=== PATIENT | male | born 1970 | race Caucasian/White ===

== ENCOUNTER → 2024-12-31 | Outpatient (CLI) | payer BC, SELFPAY ==
[2024-12-31 16:28] LABS: Basophils # (Auto) 0.1 Thou/mm3 (0.0-0.2); Basophils % (Auto) 1 % (0-2.5); Eosinophils # (Auto) 0.2 Thou/mm3 (0.0-0.5); Eosinophils % (Auto) 2 % (0-10); Hematocrit 42.3 % (41.0-53.0); Hemoglobin 14.7 g/dL (13.5-16.0); Immature Granulocytes % (Auto) 0 % (0-0); Immature Granulocytes Auto 0.01 Thou/mm3 (0.00-0.00); Lymphocytes % (Auto) 41 % (10-50); Mean Corpuscular HGB Conc 34.8 g/dl (31.0-37.0); Mean Corpuscular Hemoglobin 29.5 pg (25.0-35.0); Mean Corpuscular Volume 85 fL (80-100); Monocytes # (Auto) 0.7 Thou/mm3 (0.0-0.8); Monocytes % (Auto) 10 % (0-12); Neutrophils # (Auto) 3.3 Thou/mm3 (1.8-7.7); Neutrophils % (Auto) 46 % (37-80); Nucleated Red Blood Cell % 0 /100 WBC (0); Platelet Count 229 Thou/mm3 (140-440); RDW Standard Deviation 38.1 fL (35.1-43.9); Red Blood Count 4.98 Miln/mm3 (4.50-5.90); White Blood Count 7.2 Thou/mm3 (3.8-10.6)
[2024-12-31 16:42] LABS: Alanine Aminotransferase 35 U/L (10-49); Albumin, Serum 4.1 gm/dL (3.5-5.0); Albumin/Globulin Ratio 2.3 (1.2-2.2); Alkaline Phosphatase 70 U/L (46-116); Anion Gap 9 (7-16); Aspartate Amino Transferase 26 U/L (0-34); BUN/Creatinine Ratio 12 Ratio (12-20); Bilirubin,Total 1.7 mg/dL (0.3-1.2); Blood Urea Nitrogen 14 mg/dL (9-23); Calcium 9.3 mg/dL (8.3-10.6); Calcium (Corrected) 9.3 mg/dL (8.5-10.1); Carbon Dioxide 27.9 mMol/L (20.0-31.0); Chloride 106 mMol/L (98-107); Creatinine (Component) 1.2 mg/dL (0.6-1.3); Globulin 1.8 gm/dL (2.3-3.5); Glucose 87 mg/dL (74-106); Osmolality,Calculated 284 (275-295); Potassium 4.5 mMol/L (3.4-5.1); Sodium 143 mMol/L (136-145); Total Protein 5.9 gm/dL (5.7-8.2); eGFR > 60 See Note
== END | disposition home or self-care (01) ==
LOC: COPL 15:35
PROVIDERS: PCP Family Medicine; Referring Provider Orthopaedic Surgery; Visit Provider Orthopaedic Surgery
DX: Z97.10 Presence of artificial limb (complete) (partial), unspecified (principal)
CPT/HCPCS: 36415; 80053; 85025

== ENCOUNTER → 2025-01-27 | Outpatient (CLI) | payer BC, SELFPAY ==
[2025-01-27 13:07] LABS: Basophils # (Auto) 0.1 Thou/mm3 (0.0-0.2); Basophils % (Auto) 1 % (0-2.5); Eosinophils # (Auto) 0.1 Thou/mm3 (0.0-0.5); Eosinophils % (Auto) 2 % (0-10); Hematocrit 43.6 % (41.0-53.0); Hemoglobin 15.1 g/dL (13.5-16.0); Immature Granulocytes % (Auto) 0 % (0-0); Immature Granulocytes Auto 0.01 Thou/mm3 (0.00-0.00); Lymphocytes # (Auto) 2.5 Thou/mm3 (1.0-4.8); Lymphocytes % (Auto) 37 % (10-50); Mean Corpuscular HGB Conc 34.6 g/dl (31.0-37.0); Mean Corpuscular Hemoglobin 29.9 pg (25.0-35.0); Mean Corpuscular Volume 86 fL (80-100); Monocytes # (Auto) 0.6 Thou/mm3 (0.0-0.8); Monocytes % (Auto) 9 % (0-12); Neutrophils # (Auto) 3.5 Thou/mm3 (1.8-7.7); Neutrophils % (Auto) 51 % (37-80); Nucleated Red Blood Cell % 0 /100 WBC (0); Platelet Count 205 Thou/mm3 (140-440); RDW Standard Deviation 38.9 fL (35.1-43.9); Red Blood Count 5.05 Miln/mm3 (4.50-5.90); White Blood Count 6.8 Thou/mm3 (3.8-10.6)
[2025-01-27 13:23] LABS: Alanine Aminotransferase 30 U/L (10-49); Albumin, Serum 4.1 gm/dL (3.5-5.0); Albumin/Globulin Ratio 2.3 (1.2-2.2); Alkaline Phosphatase 69 U/L (46-116); Anion Gap 3 (7-16); Aspartate Amino Transferase 20 U/L (0-34); BUN/Creatinine Ratio 13 Ratio (12-20); Bilirubin,Total 2.5 mg/dL (0.3-1.2); Blood Urea Nitrogen 14 mg/dL (9-23); Calcium 8.9 mg/dL (8.3-10.6); Calcium (Corrected) 8.9 mg/dL (8.5-10.1); Carbon Dioxide 30.7 mMol/L (20.0-31.0); Cardiac Risk Estimate 4.4 RATIO (4.0-6.7); Chloride 110 mMol/L (98-107); Cholesterol 159 mg/dL (132-200); Creatinine (Component) 1.1 mg/dL (0.6-1.3); Globulin 1.8 gm/dL (2.3-3.5); Glucose 90 mg/dL (74-106); HDL Cholesterol 36 mg/dL (40-60); LDL Cholesterol,Calculated 101 mg/dL (0-130); Osmolality,Calculated 287 (275-295); Potassium 4.5 mMol/L (3.4-5.1); Sodium 144 mMol/L (136-145); Thyroid Stimulating Hormone 0.98 uIU/mL (0.55-4.78); Total Protein 5.9 gm/dL (5.7-8.2); Triglycerides 112 mg/dL (30-150); eGFR > 60 See Note
== END | disposition home or self-care (01) ==
LOC: COPL 12:33
PROVIDERS: PCP Family Medicine; Referring Provider Family Medicine; Visit Provider Family Medicine
DX: E78.5 Hyperlipidemia, unspecified (principal)
CPT/HCPCS: 36415; 80053; 80061; 84443; 85025

== ENCOUNTER → 2025-06-25 | Outpatient (CLI) | payer BC, SELFPAY ==
[2025-06-25 15:13] LABS: Alanine Aminotransferase 27 U/L (10-49); Albumin, Serum 4.5 gm/dL (3.5-5.0); Albumin/Globulin Ratio 2.8 (1.2-2.2); Alkaline Phosphatase 77 U/L (46-116); Anion Gap 8 (7-16); Aspartate Amino Transferase 21 U/L (0-34); BUN/Creatinine Ratio 12 Ratio (12-20); Bilirubin,Total 2.0 mg/dL (0.3-1.2); Blood Urea Nitrogen 12 mg/dL (9-23); Calcium 10.0 mg/dL (8.3-10.6); Calcium (Corrected) 10.0 mg/dL (8.5-10.1); Carbon Dioxide 30.0 mMol/L (20.0-31.0); Cardiac Risk Estimate 4.4 RATIO (4.0-6.7); Chloride 105 mMol/L (98-107); Cholesterol 164 mg/dL (132-200); Creatinine (Component) 1.0 mg/dL (0.6-1.3); Globulin 1.6 gm/dL (2.3-3.5); Glucose 86 mg/dL (74-106); HDL Cholesterol 37 mg/dL (40-60); LDL Cholesterol,Calculated 109 mg/dL (0-130); Osmolality,Calculated 283 (275-295); Potassium 4.9 mMol/L (3.4-5.1); Sodium 143 mMol/L (136-145); Total Protein 6.1 gm/dL (5.7-8.2); Triglycerides 89 mg/dL (30-150); eGFR > 60 See Note
== END | disposition home or self-care (01) ==
LOC: COPL 13:08
PROVIDERS: PCP Family Medicine; Referring Provider Family Medicine; Visit Provider Family Medicine
DX: I10 Essential (primary) hypertension (principal); E78.2 Mixed hyperlipidemia
CPT/HCPCS: 36415; 80053; 80061

== ENCOUNTER 2025-07-17 19:52 | Emergency (ER) | payer BC, SELFPAY ==
[2025-07-17 19:55] VITALS: BMI 34.8
--- NOTE | 2025-07-17 20:17 | PD.EDFALL ---
ED Fall Injury RME/HPI General Chief Complaint: Fall Stated Complaint: BUCKED OFF THE HORSE Time Seen by Provider: 07/17/25 20:22 Arrival date/time: 07/17/25 19:52 RME / HPI RME / HPI Narrative: See MDM for Dr. Reynolds's HPI documentation. Related Data Home Medications ?Medication ?Instructions ?Recorded ?Confirmed atorvastatin 10 mg tablet (Lipitor) 10 mg PO QHSPRN #0 tabs 08/18/13 09/18/22 erenumab-aooe 140 mg/mL 140 mg subcut QMONTH 08/09/19 09/18/22 subcutaneous auto-injector (Aimovig Autoinjector) propranolol 20 mg tablet 40 mg PO BID 08/09/19 09/18/22 sumatriptan succinate 100 mg 100 mg PO Q2H PRN Headache 08/09/19 09/18/22 tablet (Imitrex) celecoxib 200 mg capsule 200 mg PO HS 09/18/22 09/18/22 cyclobenzaprine 5 mg tablet 5 mg PO HS 09/18/22 09/18/22 escitalopram oxalate 10 mg tablet 10 mg PO QDAY 09/18/22 09/18/22 pantoprazole 40 mg tablet,delayed 40 mg PO QDAY 09/18/22 09/18/22 release rimegepant 75 mg disintegrating 75 mg PO QDAY 09/18/22 09/18/22 tablet (Nurtec ODT) Previous Rx's ?Medication ?Instructions ?Recorded sodium chloride 0.65 % nasal spray 2 spray intranasal QID #88 mL 03/03/23 aerosol (Saline Nasal) acetaminophen 300 mg-codeine 30 mg 2 tab PO Q8H PRN pain #20 tabs 07/17/25 tablet ibuprofen 800 mg tablet 800 mg PO Q8H PRN pain #30 tabs 07/17/25 lidocaine 5 % topical patch 2 patch topical QDAY PRN pain #30 07/17/25 (Lidoderm) ea Allergies Allergy/AdvReac Type Severity Reaction Status Date / Time No Known Allergies Allergy Verified 09/18/22 12:24 Review of Systems Review of Systems Systems Reviewed: All systems reviewed, normal except as documented Past Medical History Past Medical History NEUROLOGIC: Positive Migraine (takes meds); Negative Neurological Disorders or Seizures CARDIAC: Positive Heart Murmur and Hypercholesterolemia; Negative Cardiac Disorders or Congestive Heart Failure RESPIRATORY: Negative Chronic Obstructive Pulmonary Disease (COPD) GASTROINTESTINAL: Positive Gastrointestinal Disorders and Gastroesophageal Reflux Disease (takes meds) GENITOURINARY: Negative Genitourinary Disorders or Renal Disease MUSCULOSKELETAL: Positive Musculoskeletal Disorders ENDOCRINE: Negative Endocrine Disorders, Diabetes Mellitus Type 1 or Diabetes Mellitus Type 2 HEMATOLOGIC: Negative Blood Disorders PSYCHO/SOCIAL: Positive Anxiety OTHER HISTORY: Positive Falls (2009) and Chicken Pox ( CHILD); Negative Autoimmune Disease, Blood Transfusions, Blood Transfusion Reaction or Anesthesia Reactions Family History FAMILY HISTORY: Positive Family Cardiac Disorders (brother-htn); Negative Family Cancer, Family Surgery or Family Anesthesia Reaction Surgical History SURGICAL: Positive Ear Surgery (EAR DRUMS REBUILT PER PT, EAR TUBES CHILD), Tympanostomy Tube and Joint Replacement; Negative Cardiac Surgery or Abdominal Surgery Social History SMOKING STATUS: Never smoker ED Exam Narrative Physical exam: See [facility] for Dr. Reynolds's physical exam documentation. Course Quality Measures none Orders Category Date Time Status CT cervical spine wo con Stat Exams 07/17/25 20:[address] chest abdomen pelvis wo Stat Exams 07/17/25 20:[address] head/brain wo con Stat Exams 07/17/25 20:[address] lumbar spine wo con Stat Exams 07/17/25 20:[address] thoracic spine wo con Stat Exams 07/17/25 20:24 Completed ACETAMINOPHEN w/COD 300-30 [Tylenol w/Cod #3] Med 07/17/25 20:23 Discontinued 2 tab PO X1 ONE Ibuprofen Tab [Motrin Tab] Med 07/17/25 20:23 Discontinued 800 mg PO X1 ONE Vital Signs Vital signs: Vital Signs Temperature 98.2 F 07/17/25 20:36 Pulse Rate 59 L 07/17/25 20:36 Respiratory Rate 17 07/17/25 20:36 Blood Pressure 190/95 H 07/17/25 20:36 Pulse Oximetry (%) 99 07/17/25 20:36 Oxygen Delivery Method Room Air 07/17/25 20:36 Fall [facility] Narrative [facility] Narrative:: This section includes all my notes and documentations, including HPI, PE, and ED course. Gallo Reynolds MD HPI: 54yo male here after falling off a horse about 5 days ago, on 07/13/2025. He landed on his back and on the back of his head. He reports pain in the middle of the back. No headache or dizziness. No neck pain. No chest pain or abdominal pain. No pain in the arms or legs. ROS: All negative except as documented in HPI. Physical Exam: General: Alert and oriented. No acute distress when remaining still. Eyes: Conjunctivae and lids clear. ENT: No signs of head trauma. Neck: No tenderness. Heart: RRR. Lungs: No respiratory distress. Good air movement. No rhonchi, wheezing, rales. Chest: No tenderness. Abdomen: Soft and nontender. Normal bowel sounds. No distension. No rebound or guarding. Back: Right-sided back pain, difficult to localize. Skin: Warm and dry. Neuro: Alert and oriented X 3. Musculoskeletal: All major joints and bones are not tender with no limited ROM. I reviewed all diagnostic test results. My review of the CT head report is NAD. My review of the CT cervical spine report is NAD. My review of the CT chest abdomen pelvis report is acute fractures of right first and second lumbar transverse processes. At this point, diagnoses include: Lumbar vertebral fracture of transverse processes. Treatment here included: Tylenol with Codeine Ibuprofen Significant improvement noted. Recommended outpatient care. Based on my best medical judgment, made decision no further evaluation or treatment indicated at this time. Patient understands and agrees to the discharge instructions customized and printed, see below. Discharge Instructions from Dr. Reynolds printed for you: 1. After evaluation, you sustained broken pedicles (projections) of first and second lumbar vertebrae. 2. Activity as tolerated. 3. Ibuprofen and lidocaine patches and Tylenol with codeine for pain. 4. Expect a couple of months for full recovery. 5. See a private doctor on 07/20/2025 for recheck and further care. Ask to review all official radiology reports, to make sure you receive all necessary follow-ups and monitoring. Ask for help until you are completely better. 6. Seek immediate medical care with worsening or with any concerns. Gallo Reynolds MD Patient data External records reviewed:: [facility] previous records (Per chart review, patient was seen here on 08/09/24 for a skin infection.) Clinical information provided by:: patient Social determinants that could affect healthcare access:: none Patient has the following chronic illnesses:: HLD How is presenting disease/condition affected by chronic disease/condition?: uneffected by Evaluation data The following diagnostics were reviewed and interpreted by me:: radiology exam(s) Lab and/or radiology exams considered but not ordered:: none Interpretation Summary: I reviewed all diagnostic test results. My review of the CT head report is NAD. My review of the CT cervical spine report is NAD. My review of the CT chest abdomen pelvis report is acute fractures of right first and second lumbar transverse processes. Medications / Prescriptions Medications or Prescriptions considered but not ordered:: none Medication administrations:: Medication Administration History Discontinued Medications Acetaminophen/Codeine Phosphate (Acetaminophen W/Cod 300-30 Tablet) 2 tab PO X1 ONE Stop: 07/17/25 20:24 Last Admin: 07/17/25 21:21 Dose: 2 tab Documented By: PATRICIA Ibuprofen (Ibuprofen Tab 400 Mg Tablet) 800 mg PO X1 ONE Stop: 07/17/25 20:24 Last Admin: 07/17/25 21:20 Dose: 800 mg Documented By: PATRICIA Tylenol with Codeine Ibuprofen Consultations Consultation(s) initiated? (list below): No Diagnosis Fall Differential Diagnosis: syncope, compression fracture, concussion with loss of consciousness and concussion without loss of consciousness Most likely diagnosis given after review of the tests above:: Lumbar vertebral fracture of transverse processes Admission Indicated Admission indicated?: not indicated Explain why admission is indicated or not indicated:: With significant improvement and no condition needing emergent intervention, there was no indication for admission. Admission Request Was there a request for admission?: No Disposition Plan Disposition Plan: Discharge Discharge Attestation Discharge Attestation: The patient and all family members were given an opportunity to ask questions and understood the discharge instructions. Discharge instructions specifically effects, indications for sooner follow up or return to the emergency department, and the expected course of current diagnosis. Patient condition: Stable Discharge Plan Plan Patient Disposition: HOME (Self Care) Prescriptions/Referrals Prescriptions/Med Rec: New ibuprofen 800 mg tablet 800 mg PO Q8H PRN (Reason: pain) Qty: 30 0RF acetaminophen-codeine 300-30 mg tablet 2 tab PO Q8H MDD 6 PRN (Reason: pain) Qty: 20 0RF lidocaine [Lidoderm] 5 % adhesive patch,medicated 2 patch topical QDAY PRN (Reason: pain) Qty: 30 0RF Rx Instructions: leave on most painful area for up to 12 hrs No Action atorvastatin [Lipitor] 10 MG tablet 10 mg PO QHSPRN Qty: 0 sumatriptan succinate [Imitrex] 100 mg Tablet 100 mg PO Q2H PRN (Reason: Headache) propranolol 20 mg Tablet 40 mg PO BID Aimovig Autoinjector 140 mg/mL Auto-Injector 140 mg SUBCUT QMONTH celecoxib 200 mg capsule 200 mg PO HS Patient Comments: TAKE 1 CAPSULE BY MOUTH EVERY DAY pantoprazole 40 mg tablet,delayed release (DR/EC) 40 mg PO QDAY Patient Comments: TAKE 1 TABLET BY MOUTH DAILY AT BEDTIME escitalopram oxalate 10 mg tablet 10 mg PO QDAY Patient Comments: TAKE 1 TABLET BY MOUTH EVERY DAY cyclobenzaprine 5 mg tablet 5 mg PO HS Patient Comments: TAKE 1 TABLET BY MOUTH AT BEDTIME NEEDED Nurtec ODT 75 mg tablet,disintegrating 75 mg PO QDAY Patient Comments: DISSOLVE 1 TABLET ON TONGUE ONCE A DAY NEEDED FOR MIGRAINE 1TABLET/24 HOURS Saline Nasal 0.65 % aerosol,spray 2 spray intranasal QID Qty: 88 0RF Referrals: Sharri Ring MD [Primary Care Provider, Family Practice] - In 1 week Problem List Clinical Impression: Lumbar vertebral fracture Patient/Caregiver Discharge Instructions Discharge Activity: activity as tolerated Education Materials: ED Transverse Process Fracture Additional Instructions: Discharge Instructions from Dr. Reynolds printed for you: 1. After evaluation, you sustained broken pedicles (projections) of first and second lumbar vertebrae. 2. Activity as tolerated. 3. Ibuprofen and lidocaine patches and Tylenol with codeine for pain. 4. Expect a couple of months for full recovery. 5. See a private doctor on 07/20/2025 for recheck and further care. Ask to review all official radiology reports, to make sure you receive all necessary follow-ups and monitoring. Ask for help until you are completely better. 6. Seek immediate medical care with worsening or with any concerns. Print Language: Swiss Stand Alone Forms: [employer] Award Info., Patient Portal Info Letter
--- NOTE | 2025-07-17 20:24 | XR_ITS ---
Examination: CT thoracic spine, without contrast. 2-D sagittal reconstructions. 2-D coronal reconstructions. 3-D reconstructions. Date and time of exam:July 17, 2025, 2108 hrs. Indications: Patient fell off a horse 2 days ago with injury to the back, back pain CTDI: vol (mGy):75.6 DLP: (mGycm):7305 Technique: Multiple 1.25 mm axial sections of the thoracic spine without intravenous contrast have been obtained. 2-D sagittal and coronal reconstructions have been obtained. 3-D reconstructions have been obtained. Low dose protocols were performed. One or more of the following dose reduction techniques were used; automated exposure control, adjustment of the mA and/or KV according to patient size, use of iterative reconstruction technique. Findings: Adequate alignment thoracic vertebral bodies No thoracic vertebral body compression fracture Old appearing fracture posterior spinous processes T5, sagittal image 64, clinical correlation advised Impression: No thoracic vertebral body compression fracture Old appearing fracture posterior spinous processes T5, clinical correlation advised
--- NOTE | 2025-07-17 20:24 | XR_ITS ---
Examination: CT cervical spine without contrast 2-D sagittal reconstructions 2-D coronal reconstructions 3-D reconstructions. Exam date and time:July 17, 2025, 2103 hrs. Indications: Patient bucked off a horse today with injury to the head, head pain CTDI:vol (mGy) 18.2 DLP: (mGycm) 474 Technique: Multiple 2 mm axial sections of the cervical spine have been obtained. The coronal and sagittal reconstructions have been obtained. 3-D reconstructions have been obtained. Low dose protocols were performed. One or more of the following dose reduction techniques were used; automated exposure control, adjustment of the mA and/or KV according to patient size, use of iterative reconstruction technique. Findings: Axial sections demonstrate intact base of the skull. C1 exhibit satisfactory relationship to the odontoid. No acute cervical vertebral body fracture seen. Alignment posterior spinous processes satisfactory. Impression: No acute cervical fracture.
--- NOTE | 2025-07-17 20:24 | XR_ITS ---
Examination: CT chest, without intravenous contrast. CT abdomen, without intravenous contrast. CT pelvis, without intravenous contrast. 2-D sagittal and coronal reconstructions. 3-D reconstructions. Date and time of exam:July 17, 2025, 2105 hrs. Indications: Bucked from a horse 2 days ago with abdominal pain CTDI vol (mgy) 18 DLP (MGycm)1545 Technique: Multiple CT images, 3.0 mm slice thickness, obtained chest, abdomen, pelvis, with the high-resolution 64 slice scanner.. Sagittal and coronal 2-D reconstructions are obtained. 3-D reconstructions Low dose protocols were performed. One or more of the following dose reduction techniques were used; automated exposure control, adjustment of the mA and/or KV according to patient size, use of iterative reconstruction technique. Findings: Thoracic aorta pulmonary arteries appear intact on this noncontrast study No hemopericardium No pneumothorax pulmonary contusion or hemothorax The sternum appears intact No thoracic or lumbar vertebral body fracture Sacral segments appear intact Ribs appear intact Liver cysts No liver splenic or renal laceration, no perinephric hematoma Anterior 4.7 cm left renal cyst Aorta normal size Normal appendix No free blood in the abdomen Negative for pneumoperitoneum Urinary bladder intact Fat-containing left inguinal hernia Acute fractures right first second lumbar transverse processes Iliac bones acetabular regions and hips appear intact Impression: Thoracic aorta pulmonary arteries intact No pneumothorax pulmonary contusion or hemothorax No abdominal parenchymal laceration. Abdominal aorta intact No free blood in the abdomen or pelvis. Acute fractures right first and second lumbar transverse processes without major offset, no lumbar vertebral body compression fractures
--- NOTE | 2025-07-17 20:24 | XR_ITS ---
Examination: CT lumbar spine, without contrast. 2-D sagittal reconstructions. 2-D coronal reconstructions. 3-D reconstructions. Date and time of exam:May 17, 2025, 2110 hrs. Indications: Patient fell off a horse 2 days ago with injury to the back, back pain CTDI: vol (mGy):85.6 DLP: (mGycm):3339 Technique: Multiple 1.25 mm axial sections of the lumbar spine without intravenous contrast have been obtained. 2-D sagittal and coronal reconstructions have been obtained. 3-D reconstructions have been obtained. Low dose protocols were performed. One or more of the following dose reduction techniques were used; automated exposure control, adjustment of the mA and/or KV according to patient size, use of iterative reconstruction technique. Findings: Satisfactory alignment lumbar vertebral bodies No lumbar vertebral body compression fracture Acute fractures right first and second lumbar transverse processes Lumbar pedicles and laminae appear intact Impression: Acute fractures right first and second lumbar transverse processes No focal lumbar disc protrusion
--- NOTE | 2025-07-17 20:24 | XR_ITS ---
Examination: CT brain head without contrast. 2-D sagittal coronal reconstructions Date and time of exam:May 17, 2025, 2100 hrs. Indications: Patient bucked off a horse 2 days ago with injury of the head, head pain CTDI: vol (mGy):58.5 DLP: (mGycm):1183 Technique: Multiple CT axial sections of the brain have been obtained, 5 mm slice thickness. Contrast has not been administered. 2-D sagittal, coronal reconstructions have been obtained Low dose protocols were performed. One or more of the following dose reduction techniques were used; automated exposure control, adjustment of the mA and/or KV according to patient size, use of iterative reconstruction technique. Findings: No significant ventricular enlargement. Intra-axial or extra-axial hemorrhage density is not seen. No mass effect or midline shift Basal cisterns are not remarkable. Fourth ventricle is midline. Cranial vault intact. Impression: Negative for acute hemorrhage, mass effect or midline shift
[2025-07-17 20:36] VITALS: BP 190/95; PULSE 59; RESP 17; TEMP 36.8; O2SAT 99
[2025-07-17] MEDS: IBUPROFEN TAB 400 MG TABLET 800 MG PO (21:20)
[2025-07-17] MEDS: ACETAMINOPHEN w/COD 300-30 TABLET 2 TAB PO (21:21)
== END 2025-07-17 22:00 | disposition home or self-care (01) ==
PROVIDERS: Emergency Provider Emergency Medicine; PCP Family Medicine
DX: S32.008A Other fracture of unspecified lumbar vertebra, initial encounter for closed fracture (principal); Z96.60 Presence of unspecified orthopedic joint implant; V80.010A Animal-rider injured by fall from or being thrown from horse in noncollision accident, initial encounter
CPT/HCPCS: 70450; 71250; 72125; 72128; 72131; 74176; 99284; A9270